=== PATIENT | female | born 1990 | race Asian ===

== ENCOUNTER 2022-01-10 17:00 | Emergency (ER) | payer OTHER ==
[~2022-01-10] VITALS: Ht 167.6 cm; Wt 79.5 kg
[2022-01-10] MEDS ORDERED: MAALOX/LIDOCAINE/NYSTATIN SUSP 5 ML ORAL.SYG PO ONE (19:15)
[2022-01-10 19:51] VITALS: BP 103/71
[2022-01-10] MEDS ORDERED: MAGIC5L PO (20:24)
== END 2022-01-10 20:35 | disposition home or self-care (01) ==
LOC: EMS 17:52
DX: K12.1 Other forms of stomatitis (principal)
CPT/HCPCS: 99282; Z7502; Z7610

== ENCOUNTER 2022-01-13 10:45 | Emergency (ER) | payer OTHER ==
[~2022-01-13] VITALS: Ht 162.6 cm; Wt 75.0 kg
[~2022-01-13 10:45] MED LIST: MAGIC5L PO
[2022-01-13] MEDS ORDERED: AMOX1TAB16 PO (12:04)
[2022-01-13] MEDS ORDERED: PREN1TAB26 PO (12:08)
[2022-01-13] MEDS ORDERED: ACETAMINOPHEN 500 MG TABLET PO ONE (12:15)
[2022-01-13 12:37] VITALS: BP 122/69
== END 2022-01-13 13:03 | disposition home or self-care (01) ==
LOC: EMS 10:45
DX: K08.89 Other specified disorders of teeth and supporting structures (principal); R51.9 Headache, unspecified; K02.9 Dental caries, unspecified
CPT/HCPCS: 99283